=== PATIENT | male | born 1945 | race Hispanic/Latino ===

== ENCOUNTER 2020-10-25 09:41 | Emergency (ER) | payer MEDICARE ==
[2020-10-25 11:19] VITALS: BP 116/80
[2020-10-25 11:34] LABS: Bilirubin,Urine NEG (Negative); Blood,Urine MOD (Negative); Color,Urine Straw (Yellow); Mucus,Urine FEW /HPF; Protein,Urine <15 mg/dL mg/dL (Negative); Urobilinogen,Urine < 2.0 mg/dL (<2.0)
--- NOTE | 2020-10-25 12:02 | Emergency Department Report ---
ED General Adult HPI - General Chief complaint: Urogenital-Male Stated complaint: UTI Time Seen by Provider: 10/25/20 11:42 Source: patient Mode of arrival: Ambulatory Limitations: No Limitations - History of Present Illness Initial comments: 75-year-old male patient with history of urinary tract infection presents to the emergency department with complaints of painful urination, urinary frequency, and sensation of incomplete voiding for 3 weeks. Patient was evaluated at [facility] recently and diagnosed with urinary tract infection. He was referred to urologist. His urologist prescribed Bactrim. He has completed approximately half of his 10-day course of antibiotics. States his symptoms have not improved. Denies fever, chills, nausea, vomiting, abdominal pain, pelvic pain, hematuria, testicular pain/swelling. Denies all other complaints at this time. - Related Data Previous Rx's Medication Instructions Recorded Last Taken Type Phenazopyridine HCl [Azo Urinary 2 tab PO TID 2 Days tablet 10/25/20 Unknown Rx Pain Relief] Tamsulosin [Flomax] 0.4 mg PO QDAY #14 cap 10/25/20 Unknown Rx Allergies Allergy/AdvReac Type Severity Reaction Status Date / Time [place] And Derivatives Allergy Rash Verified 10/25/20 10:43 ED Review of Systems ROS: Stated complaint: UTI Other details as noted in HPI Other: GENERAL: Negative for fever. CARDIOVASCULAR: Negative for chest pain. PULMONARY: Negative for shortness of breath. GASTROINTESTINAL: Negative for abdominal pain. GENITOURINARY: Positive for urinary frequency, painful urination, sensation of incomplete voiding. MUSCULOSKELETAL: Negative for back pain. NEUROLOGICAL: Negative for headache. INTEGUMENTARY: Negative for rash. ED Past Medical Hx - Social History Smoking Status: Unknown if ever smoked Substance Use Type: Prescribed - Medications Home Medications: Home Medications Medication Instructions Recorded Confirmed Last Taken Type Phenazopyridine HCl [Azo Urinary 2 tab PO TID 2 Days tablet 10/25/20 Unknown Rx Pain Relief] Tamsulosin [Flomax] 0.4 mg PO QDAY #14 cap 10/25/20 Unknown Rx ED Physical Exam - General Limitations: No Limitations - Other Other exam information: General: Awake and alert. No acute distress. Head: Atraumatic, normocephalic. Eyes: EOMI. Pupils are equal and round. Normal sclera and conjunctiva. ENT: Oral mucosa is moist. Normal pharyngeal exam. Neck: Supple. No lymphadenopathy. Pulmonary: No respiratory distress. Clear to auscultation bilaterally. Cardiac: Regular rate and rhythm. Pulses are palpable and equal bilaterally. No lower extremity cyanosis or edema. Skin: Warm and dry. No rashes. Abdomen: Soft, non-tender, non-protuberant. No guarding, rigidity, or rebound. Bowel sounds are normal. No organomegaly or masses noted. Back: Normal alignment. No CVA tenderness. Extremities: Symmetrical. Full range of motion intact. Neurological: Alert and oriented, appropriately interactive, no focal deficits. Psych: Cooperative. Appropriate mood and affect. Speech is evenly metered. Thoughts are logically construed. ED Course Vital Signs 10/25/20 11:14 Temperature 98.4 F Pulse Rate 69 Respiratory 20 Rate Blood Pressure 116/80 O2 Sat by Pulse 99 Oximetry ED Medical Decision Making - Medical Decision Making Differential diagnosis including but not limited to: urinary tract infection, prostatitis, pyelonephritis, nephrolithiasis, BPH Patient presents to the emergency department with complaints of urinary symptoms. He is afebrile, hemodynamically stable, appears well-hydrated, tolerating oral intake without difficulty. No nausea, vomiting, flank pain, or back pain to suggest pyelonephritis or nephrolithiasis. Urinalysis confirms presence of UTI. Patient is already on appropriate antibiotics. He still has 5 days left of Bactrim. He is currently under the care of a urologist. Patient has been advised to continue the Bactrim as previously prescribed. He will be discharged home with prescriptions for Flomax and AZO for added symptomatic relief. Emphasized the importance of following up with his urologist this week. Patient expressed understanding and is agreeable to plan of care. Strict return precautions provided. History, exam, diagnostic testing, and current condition do not suggest worrisome pathology to warrant further testing, continued ED treatment, admission, or surgical evaluation at this point. Given the low probability of a significant medical illness, it would be more likely to result in harm than benefit to perform further testing at this stage. Discussed findings, presumptive diagnosis, need for follow-up and specific signs/symptoms that should prompt immediate return to the emergency department. Instructions were explained in detail to the patient in addition to giving written discharge information. Patient expressed understanding and was given the opportunity to ask questions, all of which were satisfactorily answered prior to discharge home. Critical care attestation.: If time is entered above; I have spent that time in minutes in the direct care of this critically ill patient, excluding procedure time. ED Disposition Clinical Impression: Urinary tract infection Qualifiers: Urinary tract infection type: acute cystitis Hematuria presence: without hematuria Qualified Code(s): N30.00 - Acute cystitis without hematuria Disposition: TO HOME OR SELFCARE Is pt being admited?: No Does the pt Need Aspirin: No Condition: Stable Instructions: Urinary Tract Infection, Adult Additional Instructions: Continue Bactrim as previously prescribed. Finish the antibiotics even if your symptoms resolved. Take Flomax and AZO as directed for symptomatic relief. Follow-up with urologist this week. Call Tuesday to schedule an appointment. See referral information below. Return to the emergency department immediately for new or worsening symptoms. Specifically, return to the emergency department immediately for fever, abdominal pain, vomiting, inability to use the bathroom, or any other concerns. Prescriptions: Phenazopyridine HCl [Azo Urinary Pain Relief] 2 tab PO TID 2 Days tablet Tamsulosin [Flomax] 0.4 mg PO QDAY #14 cap Referrals: LESA LEACH MD [Primary Care Provider] - 3-5 Days MACKENZIE VITAL MD [Staff Physician] - 3-5 Days GUZMAN TOLBERT MD [Staff Physician] - 3-5 Days Time of Disposition: 12:03
== END 2020-10-25 12:48 | disposition home or self-care (01) ==
LOC: ED 09:41
DX: N39.0 Urinary tract infection, site not specified (principal); Z79.899 Other long term (current) drug therapy; Z88.8 Allergy status to other drugs, medicaments and biological substances
CPT/HCPCS: 81001; 87086